=== PATIENT | female | born 1930 | race Caucasian/White ===

== ENCOUNTER → 2019-09-15 | Outpatient (CLI) | payer MEDICARE ==
--- NOTE | 2019-09-19 11:08 | PATH ---
[address] [address] PATHOLOGY RPT PROCEDURE Name: PETRONA ABDUL Room: [facility] Ember#: [id number] Admission: 09/15/19 Date of : [birth year] Discharge: Report #: [id number] Path Case #: [id number] [facility] Accession Number: [id number] . 01 Material submitted: . buttock - RIGHT BUTTOCK BX. Modifiers: right . 02 Diagnosis: Right buttock biopsy: - Benign skin with nonspecific ulceration. (JIGAR:kameron; 09/18/2019) [facility] 09/18/2019 1556 Local . 02 Electronically signed: . Betito Henderson MD, Pathologist NPI- [id number] . 01 Gross description: . The specimen is received in formalin, labeled "Petrona Abdul, right buttock biopsy" and consists of a segment of yellow-cespedes tissue measuring 2.0 x 0.3 x 0.2 cm which is entirely submitted in A1. (LAURA; 09/15/2019) JFQ/JFQ 09/18/2019 [facility] . 02 Pathologist provided ICD-10: L98.419 . 02 CPT . 651409 Specimen Comment: A courtesy copy of this report has been sent to [phone] Specimen Comment: Report sent to Performed at: [address], [place] [id number] MD Manjit Santos MD Phone: [phone] Performed at: 02 [facility] [address], [place], [place] [id number] MD Betito Henderson MD Phone: [phone]
== END ==
LOC: M.WC 09:25
PROVIDERS: ATTEND Family Medicine
DX: L89.313 Pressure ulcer of right buttock, stage 3 (principal); L89.323 Pressure ulcer of left buttock, stage 3; H35.30 Unspecified macular degeneration; M10.9 Gout, unspecified; I50.9 Heart failure, unspecified; Z87.891 Personal history of nicotine dependence

== ENCOUNTER → 2019-10-13 | Outpatient (CLI) | payer MEDICARE | LOC: M.WC 05:31 | PROVIDERS: ATTEND Family Medicine | DX: L89.313 Pressure ulcer of right buttock, stage 3 (principal); L89.323 Pressure ulcer of left buttock, stage 3; I50.9 Heart failure, unspecified; M10.9 Gout, unspecified; H40.9 Unspecified glaucoma; H35.30 Unspecified macular degeneration; Z87.891 Personal history of nicotine dependence ==